=== PATIENT | male | born 1940 | race Caucasian/White ===

== ENCOUNTER → 2018-05-14 | Outpatient (CLI) | payer MEDICARE ==
[~2018-05-14] MED LIST: ASPI-1441 PO; CALC1TAB32 PO; CALC500T6 PO; LOR5 PO; MULT-60 PO; OMEG500C7 PO; VITAMINS
[2018-05-14 15:33] LABS: PLATELET COUNT, AUTOMATED 215 K/uL (150-450)
== END ==
LOC: LAB 15:03
PROVIDERS: ATTEND Family Medicine
DX: I10 Essential (primary) hypertension (principal); E55.9 Vitamin D deficiency, unspecified; R97.20 Elevated prostate specific antigen [PSA]
CPT/HCPCS: 36415; 82040; 82247; 82306; 82310; 82374; 82435; 82565; 82947; 84075; 84132; 84153; 84155; 84295; 84450; 84460; 84520; 85025

== ENCOUNTER → 2018-06-05 | Outpatient (CLI) | payer MEDICARE ==
[~2018-06-05] MED LIST changes: +DIPH0.5D12 IM; +PNEU0.5D3 IM
--- NOTE | 2018-06-05 13:20 | RADIOLOGY IMAGING REPORT ---
FACILITY: [facility] PATIENT NAME: Jose Granado : 1940 MR: [id number] V: [id number] EXAM DATE: ORDERING PHYSICIAN: NATALIYA BAÑUELOS TECHNOLOGIST: Location: [facility] Patient: Jose Granado : 1940 Visit/Account:[id number] Date of Sevice: 06/05/2018 DEXA Scan Clinical history: Osteoporosis. Comparison: DEXA scan from 05/08/2010. LUMBAR SPINE: The bone mineral density (BMD) measured from L1-L4 correlates with a Z-score of -1 and a T-score of - 1.8 which is osteopenia as defined by the World Health Organization. The corresponding risk of fract ure in the lumbar spine is 3-4 times increased compared with a young adult reference population. Thi s value has increase by 18.9 % since the prior study. More than 5% change is considered significant. HIP: Bone mineral density (BMD) measured in the LEFT total hip region correlates with a Z-score -0.4 and a T-score of -1.6 which is osteopenia as defined by the World Health Organization. The corresponding risk of fracture in the hip is 3-4 times increased compared to a young adult reference population. Th is value has increase by 1.4 % since the prior study. More than 5% change is considered significant. T score left femoral neck -1.5 Bone mineral density (BMD) measured in the Femoral Neck region measures 0.871 g/cm?. IMPRESSION: 1. Lumbar spine: Osteopenia. There has been 18.9% increase in the bone mineral density since the pr evious exam. 2. Left Total Hip: Osteopenia. There has been 1.4% increase in the bone mineral density since the p revious exam. 3. Femoral Neck: Bone Mineral Density is 0.871 g/cm? The next DEXA scan of this patient should include the following sites: L1-L4 and the left hip. FRAX? WHO Fracture Risk Assessment Tool link: <http://www.shef.ac.uk/FRAX/tool.jsp?locationValue=9> PLEASE NOTE: 1) The World Health Organization defines low BMD as follows: T-score Normal > -1 Osteopenia < -1 and > -2.5 Osteoporosis < -2.5 without fractures Established osteoporosis < -2.5 with fractures 2) In general, you may wish to consider: Diagnosis Treatment Follow-up DEXA Normal BMD Prevention 2-3 years Osteopenia Prevention/therapy 1-2 years Osteoporosis Therapy Yearly 3) Fracture risk estimated from the T-score is more accurate for vertebral fractures (often spontane ous) than for hip fractures. Report Dictated By: Venus Lai MD at 06/05/2018 1:10 PM Report E-Signed By: Venus Lai MD at 06/05/2018 1:15 PM WSN:[email or web address]
== END ==
LOC: LAB 11:28
PROVIDERS: ATTEND Emergency Medicine
DX: M85.80 Other specified disorders of bone density and structure, unspecified site (principal); I10 Essential (primary) hypertension; R41.3 Other amnesia
CPT/HCPCS: 36415; 77080; 82465; 82607; 83718; 84478

== ENCOUNTER → 2018-09-19 | Outpatient (CLI) | payer MEDICARE ==
[~2018-09-19] MED LIST changes: +FLU180SY11 IM; +ROSU10TA5 PO
== END ==
LOC: LAB 09:07
PROVIDERS: ATTEND Emergency Medicine
DX: R97.20 Elevated prostate specific antigen [PSA] (principal)
CPT/HCPCS: 36415; 84154

== ENCOUNTER → 2018-09-23 | Outpatient (CLI) | payer SELFPAY | LOC: LAB 11:28 | PROVIDERS: ATTEND Urology | DX: Z02.9 Encounter for administrative examinations, unspecified (principal) ==

== ENCOUNTER → 2018-12-23 | Outpatient (CLI) | payer SELFPAY | LOC: LAB 10:04 | PROVIDERS: ATTEND Urology | DX: N40.0 Benign prostatic hyperplasia without lower urinary tract symptoms (principal); Z80.42 Family history of malignant neoplasm of prostate | CPT/HCPCS: 36415; 84154 ==

== ENCOUNTER → 2019-01-20 | Outpatient (CLI) | payer MEDICARE ==
--- NOTE | 2019-01-20 12:06 | RADIOLOGY IMAGING REPORT ---
FACILITY: [facility] [place] PATIENT NAME: Jose Granado : 1940 MR: [id number] V: [id number] EXAM DATE: ORDERING PHYSICIAN: NATALIYA BAÑUELOS TECHNOLOGIST: Location: [facility] [place] Patient: Jose Granado : 1940 Visit/Account:[id number] Date of Sevice: 01/20/2019 Study: Frontal and lateral views of the chest Indication: Cough Comparison study: None Findings: PA and lateral views of the chest demonstrate no evidence of acute infiltrate. There is no evidence of pleural effusion. There is no evidence of pneumothorax. The mediastinal, cardiac, and diaphragmatic contours are unremarkable. The visualized bony structures are unremarkable. IMPRESSION: Unremarkable chest. Report Dictated By: Mk Bailon at 01/20/2019 12:02 PM Report E-Signed By: Mk Bailon at 01/20/2019 12:02 PM WSN:[email or web address]
== END ==
LOC: RAD 11:35
PROVIDERS: ATTEND Emergency Medicine
DX: R05 Cough (principal)
CPT/HCPCS: 71046

== ENCOUNTER → 2019-06-01 | Outpatient (CLI) | payer MEDICARE ==
[~2019-06-01] MED LIST changes: +AZIT-17 PO; -DIPH0.5D12 IM; +DIPH0.5S2 IM
[2019-06-01 12:54] LABS: PLATELET COUNT, AUTOMATED 221 K/uL (150-450)
[2019-06-01 12:55] LABS: LDL CHOLESTEROL 61 mg/dl
== END ==
LOC: LAB 12:15
PROVIDERS: ATTEND Emergency Medicine
DX: E78.5 Hyperlipidemia, unspecified (principal); M85.80 Other specified disorders of bone density and structure, unspecified site
CPT/HCPCS: 36415; 82040; 82247; 82310; 82374; 82435; 82465; 82565; 82947; 83718; 84075; 84132; 84155; 84295; 84450; 84460; 84478; 84520; 85025